=== PATIENT | male | born 1965 | race Caucasian/White ===

== ENCOUNTER 2019-03-01 09:46 | Inpatient (IN) | payer OTHER ==
[2019-03-01] MEDS ORDERED: DOCUSATE SODIUM 100 MG CAP PO (12:00)
[2019-03-01] MEDS ORDERED: morphine 2 MG INJ IV (12:00)
[2019-03-01] MEDS ORDERED: NACL 0.9% 3 ML SYG IV (12:00)
[2019-03-01] MEDS ORDERED: ACETAMINOPHEN 325 MG TAB PO (12:00)
[2019-03-01] MEDS ORDERED: ONDANSETRON 4 MG INJ IV (12:00)
[2019-03-01] MEDS ORDERED: NITROGLYCERIN (SL) 0.4 MG TAB SL (12:00)
[2019-03-01] MEDS ORDERED: HYDROCODONE/APAP (5/325) TAB PO (12:00)
[2019-03-01] MEDS: CALCIUM ACETATE 667 MG CAP PO ×2 (13:40→17:33)
[2019-03-01] MEDS: GABAPENTIN 300 MG CAP PO ×2 (13:40→20:45)
[2019-03-01] MEDS: HEPARIN 5,000 UNIT/1 ML VIAL SC ×2 (13:41→20:58)
[2019-03-01] MEDS: BUMETANIDE 1 MG INJ IV (17:33)
[2019-03-01] MEDS: INSULIN ASPART [NOVOLOG] 3 ML PEN SC ×2 (17:36→20:44)
[2019-03-01] MEDS: GEMFIBROZIL 600 MG TAB PO (20:44)
[2019-03-01] MEDS: LOSARTAN 50 MG TAB PO (20:44)
[2019-03-01] MEDS: ATORVASTATIN 80 MG TAB PO (20:45)
[2019-03-02] MEDS: ACCU-CHEK XX (02:00)
[2019-03-02] MEDS: BUMETANIDE 1 MG INJ IV ×2 (05:58→17:08)
[2019-03-02 06:17] LABS: ADD MAN DIFF? NO
[2019-03-02 06:26] LABS: WHITE BLOOD COUNT 5.4 10^3/ul (4.8-10.8)
[2019-03-02 06:26] LABS: BASOPHIL # 0.1 10^3/ul (0.0-0.1); BASOPHILS % 1.5 % (0.0-2.0); EOSINOPHILS # 1.3 10^3/ul (0.0-0.5); EOSINOPHILS % 23.8 % (0.0-7.0); HEMATOCRIT 25.7 % (42.0-52.0); HEMOGLOBIN 8.5 g/dl (14.0-18.0); LYMPHOCYTES # 0.9 10^3/ul (0.8-2.9); LYMPHOCYTES % 16.2 % (15.0-51.0); MEAN CORPUSCULAR HEMOGLOBIN 32.2 pg (29.0-33.0); MEAN CORPUSCULAR HGB CONC 33.1 g/dl (32.0-37.0); MEAN CORPUSCULAR VOLUME 97.3 fl (82.0-101.0); MONOCYTE # 0.7 10^3/ul (0.3-0.9); NEUTROPHIL # 2.4 10^3/ul (1.6-7.5); NEUTROPHILS % 45.3 % (39.0-77.0); PLATELET COUNT 138 10^3/UL (140-415); RED BLOOD COUNT 2.64 10^6/ul (4.70-6.10); RED CELL DISTRIBUTION WIDTH 14.6 % (11.5-14.5)
[2019-03-02] MEDS: HEPARIN 5,000 UNIT/1 ML VIAL SC ×3 (06:27→22:21)
[2019-03-02 06:57] LABS: ALANINE AMINOTRANSFERASE 17 IU/L (13-69); ALBUMIN/GLOBULIN RATIO 1.42; ALKALINE PHOSPHATASE 101 IU/L (42-121); ANION GAP 13 (5-13); ASPARTATE AMINO TRANSFERASE 19 IU/L (15-46); BILIRUBIN,INDIRECT 0.2 mg/dl (0-1.1); BILIRUBIN,TOTAL 0.2 mg/dl (0.2-1.3); BLOOD UREA NITROGEN 34 mg/dl (7-20); CALCIUM 8.5 mg/dl (8.4-10.2); CARBON DIOXIDE 30 mmol/L (21-31); CHLORIDE 91 mmol/L (97-110); CHOL/HDL RATIO 4.9 RATIO; CHOLESTEROL 128 mg/dl (100-200); CREATININE 7.41 mg/dl (0.61-1.24); Estimated GFR 8 mL/min (>60); GLUCOSE 96 mg/dl (70-220); HDL CHOLESTEROL 26 mg/dl (28-71); LDL CHOLESTEROL,CALCULATED 76 mg/dl; POTASSIUM 4.5 mmol/L (3.5-5.1); SODIUM 134 mmol/L (135-144); TOTAL PROTEIN 6.8 g/dl (6.1-8.1); TRIGLYCERIDES 130 mg/dl (0-149)
[2019-03-02 07:20] LABS: HEMOGLOBIN A1C 6.1 % (0-5.9)
[2019-03-02 07:24] LABS: THYROID STIMULATING HORMONE 0.092 MIU/L (0.465-4.680)
[2019-03-02 08:08] LABS: HEPATITIS B SURFACE ANTIGEN NEGATIVE (NEGATIVE)
[2019-03-02] MEDS: CALCIUM ACETATE 667 MG CAP PO ×3 (08:14→17:09)
[2019-03-02] MEDS: ASPIRIN 81 MG TAB PO (08:14)
[2019-03-02] MEDS: FERROUS SULFATE (EC) 325 MG TAB PO (08:15)
[2019-03-02] MEDS: AMLODIPINE 10 MG TAB PO (08:15)
[2019-03-02] MEDS: ISOSORBIDE MONONITRATE(SR)60 MG TAB PO (08:15)
[2019-03-02] MEDS: GABAPENTIN 300 MG CAP PO ×3 (08:15→21:44)
[2019-03-02] MEDS: LOSARTAN 50 MG TAB PO ×2 (08:15→21:45)
[2019-03-02] MEDS: GEMFIBROZIL 600 MG TAB PO ×2 (08:15→21:44)
[2019-03-02] MEDS: INSULIN ASPART [NOVOLOG] 3 ML PEN SC ×4 (08:17→21:00)
[2019-03-02 09:55] LABS: HEPATITIS B SURFACE ANTIBODY INDETERMINATE (NEGATIVE)
[2019-03-02] MEDS: EPOETIN ALFA-EPBX (ESRD) 4,000 UNIT/ML VIAL SC (17:09)
[2019-03-02] MEDS: ATORVASTATIN 80 MG TAB PO (21:44)
[2019-03-03] MEDS: ACCU-CHEK XX (02:00)
[2019-03-03] MEDS: BUMETANIDE 1 MG INJ IV ×2 (06:06→17:23)
[2019-03-03] MEDS: HEPARIN 5,000 UNIT/1 ML VIAL SC ×3 (06:15→22:07)
[2019-03-03 06:18] LABS: ADD MAN DIFF? NO
[2019-03-03 06:22] LABS: BASOPHIL # 0.1 10^3/ul (0.0-0.1); BASOPHILS % 0.8 % (0.0-2.0); EOSINOPHILS # 1.3 10^3/ul (0.0-0.5); EOSINOPHILS % 21.4 % (0.0-7.0); HEMATOCRIT 25.3 % (42.0-52.0); HEMOGLOBIN 8.6 g/dl (14.0-18.0); LYMPHOCYTES # 0.8 10^3/ul (0.8-2.9); LYMPHOCYTES % 12.9 % (15.0-51.0); MEAN CORPUSCULAR HEMOGLOBIN 33.2 pg (29.0-33.0); MEAN CORPUSCULAR VOLUME 97.7 fl (82.0-101.0); MEAN PLATELET VOLUME 10.2 fl (7.4-10.4); MONOCYTE # 0.7 10^3/ul (0.3-0.9); MONOCYTES % 10.9 % (0.0-11.0); NEUTROPHIL # 3.2 10^3/ul (1.6-7.5); NEUTROPHILS % 53.7 % (39.0-77.0); PLATELET COUNT 128 10^3/UL (140-415); RED BLOOD COUNT 2.59 10^6/ul (4.70-6.10); RED CELL DISTRIBUTION WIDTH 14.6 % (11.5-14.5)
[2019-03-03 06:44] LABS: ANION GAP 11 (5-13); BLOOD UREA NITROGEN 20 mg/dl (7-20); CALCIUM 8.5 mg/dl (8.4-10.2); CARBON DIOXIDE 27 mmol/L (21-31); CHLORIDE 98 mmol/L (97-110); CREATININE 5.32 mg/dl (0.61-1.24); Estimated GFR 11 mL/min (>60); GLUCOSE 98 mg/dl (70-220); POTASSIUM 5.2 mmol/L (3.5-5.1); SODIUM 136 mmol/L (135-144)
[2019-03-03 07:06] LABS: CHOL/HDL RATIO 4.5 RATIO; HDL CHOLESTEROL 27 mg/dl (28-71); LDL CHOLESTEROL,CALCULATED 74 mg/dl; TRIGLYCERIDES 105 mg/dl (0-149)
[2019-03-03 07:06] LABS: CHOLESTEROL 122 mg/dl (100-200)
[2019-03-03] MEDS: INSULIN ASPART [NOVOLOG] 3 ML PEN SC ×4 (08:04→21:00)
[2019-03-03] MEDS: GABAPENTIN 300 MG CAP PO ×3 (08:34→21:59)
[2019-03-03] MEDS: FERROUS SULFATE (EC) 325 MG TAB PO (08:34)
[2019-03-03] MEDS: LOSARTAN 50 MG TAB PO ×2 (08:34→22:00)
[2019-03-03] MEDS: ASPIRIN 81 MG TAB PO (08:34)
[2019-03-03] MEDS: GEMFIBROZIL 600 MG TAB PO ×2 (08:34→22:00)
[2019-03-03] MEDS: CALCIUM ACETATE 667 MG CAP PO ×3 (08:34→17:23)
[2019-03-03] MEDS: ISOSORBIDE MONONITRATE(SR)60 MG TAB PO (08:34)
[2019-03-03] MEDS: AMLODIPINE 10 MG TAB PO (08:35)
[2019-03-03] MEDS: ATORVASTATIN 80 MG TAB PO (22:00)
[2019-03-04] MEDS: ACCU-CHEK XX (02:00)
[2019-03-04 06:18] LABS: ADD MAN DIFF? NO
[2019-03-04 06:22] LABS: WHITE BLOOD COUNT 5.4 10^3/ul (4.8-10.8)
[2019-03-04 06:22] LABS: BASOPHIL # 0.1 10^3/ul (0.0-0.1); BASOPHILS % 0.9 % (0.0-2.0); EOSINOPHILS # 1.1 10^3/ul (0.0-0.5); EOSINOPHILS % 20.4 % (0.0-7.0); HEMATOCRIT 24.9 % (42.0-52.0); HEMOGLOBIN 8.4 g/dl (14.0-18.0); LYMPHOCYTES # 0.8 10^3/ul (0.8-2.9); LYMPHOCYTES % 14.1 % (15.0-51.0); MEAN CORPUSCULAR HEMOGLOBIN 32.9 pg (29.0-33.0); MEAN CORPUSCULAR HGB CONC 33.7 g/dl (32.0-37.0); MEAN CORPUSCULAR VOLUME 97.6 fl (82.0-101.0); MEAN PLATELET VOLUME 11.1 fl (7.4-10.4); MONOCYTE # 0.7 10^3/ul (0.3-0.9); MONOCYTES % 13.2 % (0.0-11.0); NEUTROPHIL # 2.8 10^3/ul (1.6-7.5); NEUTROPHILS % 51.2 % (39.0-77.0); PLATELET COUNT 138 10^3/UL (140-415); RED BLOOD COUNT 2.55 10^6/ul (4.70-6.10); RED CELL DISTRIBUTION WIDTH 14.7 % (11.5-14.5)
[2019-03-04] MEDS: BUMETANIDE 1 MG INJ IV ×2 (06:50→17:06)
[2019-03-04] MEDS: HEPARIN 5,000 UNIT/1 ML VIAL SC ×3 (06:57→21:45)
[2019-03-04 06:58] LABS: ANION GAP 10 (5-13); BLOOD UREA NITROGEN 15 mg/dl (7-20); CALCIUM 8.5 mg/dl (8.4-10.2); CARBON DIOXIDE 28 mmol/L (21-31); CHLORIDE 95 mmol/L (97-110); CREATININE 4.12 mg/dl (0.61-1.24); Estimated GFR 15 mL/min (>60); GLUCOSE 118 mg/dl (70-220); POTASSIUM 4.3 mmol/L (3.5-5.1); SODIUM 133 mmol/L (135-144)
[2019-03-04 07:08] LABS: PHOSPHORUS 3.6 mg/dl (2.5-4.9)
[2019-03-04] MEDS: INSULIN ASPART [NOVOLOG] 3 ML PEN SC ×4 (07:55→21:17)
[2019-03-04] MEDS: GEMFIBROZIL 600 MG TAB PO ×2 (08:33→21:06)
[2019-03-04] MEDS: LOSARTAN 50 MG TAB PO ×2 (08:33→21:09)
[2019-03-04] MEDS: ISOSORBIDE MONONITRATE(SR)60 MG TAB PO (08:33)
[2019-03-04] MEDS: CALCIUM ACETATE 667 MG CAP PO ×3 (08:33→17:06)
[2019-03-04] MEDS: FERROUS SULFATE (EC) 325 MG TAB PO (08:33)
[2019-03-04] MEDS: ASPIRIN 81 MG TAB PO (08:34)
[2019-03-04] MEDS: GABAPENTIN 300 MG CAP PO ×3 (08:34→21:06)
[2019-03-04] MEDS: AMLODIPINE 10 MG TAB PO (08:34)
[2019-03-04] MEDS: ATORVASTATIN 80 MG TAB PO (21:06)
[2019-03-05] MEDS: ACCU-CHEK XX (02:00)
[2019-03-05] MEDS: BUMETANIDE 1 MG INJ IV ×2 (05:44→17:18)
[2019-03-05] MEDS: HEPARIN 5,000 UNIT/1 ML VIAL SC ×3 (05:55→23:58)
[2019-03-05 06:12] LABS: ADD MAN DIFF? NO
[2019-03-05 06:19] LABS: BASOPHIL # 0.1 10^3/ul (0.0-0.1); BASOPHILS % 1.3 % (0.0-2.0); EOSINOPHILS # 1.2 10^3/ul (0.0-0.5); EOSINOPHILS % 17.7 % (0.0-7.0); HEMATOCRIT 25.9 % (42.0-52.0); HEMOGLOBIN 8.6 g/dl (14.0-18.0); LYMPHOCYTES # 0.8 10^3/ul (0.8-2.9); LYMPHOCYTES % 11.5 % (15.0-51.0); MEAN CORPUSCULAR HEMOGLOBIN 32.8 pg (29.0-33.0); MEAN CORPUSCULAR HGB CONC 33.2 g/dl (32.0-37.0); MEAN CORPUSCULAR VOLUME 98.9 fl (82.0-101.0); MEAN PLATELET VOLUME 11.2 fl (7.4-10.4); MONOCYTE # 0.8 10^3/ul (0.3-0.9); MONOCYTES % 10.7 % (0.0-11.0); NEUTROPHIL # 4.1 10^3/ul (1.6-7.5); NEUTROPHILS % 58.4 % (39.0-77.0); PLATELET COUNT 150 10^3/UL (140-415); RED BLOOD COUNT 2.62 10^6/ul (4.70-6.10); RED CELL DISTRIBUTION WIDTH 14.6 % (11.5-14.5)
[2019-03-05 06:56] LABS: ANION GAP 10 (5-13); BLOOD UREA NITROGEN 18 mg/dl (7-20); CALCIUM 8.9 mg/dl (8.4-10.2); CARBON DIOXIDE 27 mmol/L (21-31); CHLORIDE 97 mmol/L (97-110); CREATININE 4.44 mg/dl (0.61-1.24); Estimated GFR 14 mL/min (>60); GLUCOSE 81 mg/dl (70-220); POTASSIUM 5.4 mmol/L (3.5-5.1); SODIUM 134 mmol/L (135-144)
[2019-03-05 07:10] LABS: PHOSPHORUS 4.2 mg/dl (2.5-4.9)
[2019-03-05 07:10] LABS: MAGNESIUM 2.1 mg/dl (1.7-2.5)
[2019-03-05] MEDS: CALCIUM ACETATE 667 MG CAP PO ×3 (07:45→17:17)
[2019-03-05] MEDS: INSULIN ASPART [NOVOLOG] 3 ML PEN SC ×4 (07:48→21:00)
[2019-03-05] MEDS: FERROUS SULFATE (EC) 325 MG TAB PO (08:19)
[2019-03-05] MEDS: GEMFIBROZIL 600 MG TAB PO ×2 (08:19→21:53)
[2019-03-05] MEDS: ASPIRIN 81 MG TAB PO (08:19)
[2019-03-05] MEDS: GABAPENTIN 300 MG CAP PO ×3 (08:19→21:53)
[2019-03-05] MEDS: AMLODIPINE 10 MG TAB PO (08:20)
[2019-03-05] MEDS: LOSARTAN 50 MG TAB PO ×2 (08:21→21:56)
[2019-03-05] MEDS: ISOSORBIDE MONONITRATE(SR)60 MG TAB PO (08:21)
[2019-03-05] MEDS ORDERED: GLUCAGON 1 MG INJ IM (13:00)
[2019-03-05] MEDS ORDERED: GLUCOSE GEL 15 GRAM TUBE PO ×2 (13:00)
[2019-03-05] MEDS ORDERED: DEXTROSE 50% 50 ML SYRINGE IV ×2 (13:00)
[2019-03-05] MEDS ORDERED: hydrALAzine 20 MG INJ IV (13:00)
[2019-03-05] MEDS ORDERED: GLUCOSE GEL 15 GRAM TUBE BUCCAL (13:00)
[2019-03-05] MEDS: EPOETIN ALFA-EPBX (ESRD) 10,000 UNIT/ML VIAL SC (17:24)
[2019-03-05] MEDS: ATORVASTATIN 80 MG TAB PO (21:53)
[2019-03-06] MEDS: ACCU-CHEK XX (02:00)
[2019-03-06 06:23] LABS: ADD MAN DIFF? NO
[2019-03-06 06:27] LABS: WHITE BLOOD COUNT 5.9 10^3/ul (4.8-10.8)
[2019-03-06 06:27] LABS: ABNORMAL IP MESSAGE 1; BASOPHIL # 0.1 10^3/ul (0.0-0.1); BASOPHILS % 1.4 % (0.0-2.0); EOSINOPHILS # 1.1 10^3/ul (0.0-0.5); EOSINOPHILS % 17.8 % (0.0-7.0); HEMATOCRIT 24.3 % (42.0-52.0); HEMOGLOBIN 8.1 g/dl (14.0-18.0); LYMPHOCYTES # 0.5 10^3/ul (0.8-2.9); LYMPHOCYTES % 8.8 % (15.0-51.0); MEAN CORPUSCULAR HEMOGLOBIN 32.9 pg (29.0-33.0); MEAN CORPUSCULAR HGB CONC 33.3 g/dl (32.0-37.0); MEAN CORPUSCULAR VOLUME 98.8 fl (82.0-101.0); MEAN PLATELET VOLUME 11.5 fl (7.4-10.4); MONOCYTE # 0.8 10^3/ul (0.3-0.9); MONOCYTES % 12.7 % (0.0-11.0); NEUTROPHIL # 3.5 10^3/ul (1.6-7.5); NEUTROPHILS % 58.8 % (39.0-77.0); PLATELET COUNT 146 10^3/UL (140-415); POSITIVE DIFF @See below; RED BLOOD COUNT 2.46 10^6/ul (4.70-6.10); RED CELL DISTRIBUTION WIDTH 14.8 % (11.5-14.5)
[2019-03-06] MEDS: BUMETANIDE 1 MG INJ IV ×2 (06:41→17:16)
[2019-03-06] MEDS: HEPARIN 5,000 UNIT/1 ML VIAL SC (06:50)
[2019-03-06 06:53] LABS: ANION GAP 9 (5-13); BLOOD UREA NITROGEN 19 mg/dl (7-20); CARBON DIOXIDE 26 mmol/L (21-31); CHLORIDE 102 mmol/L (97-110); CREATININE 3.79 mg/dl (0.61-1.24); Estimated GFR 17 mL/min (>60); GLUCOSE 111 mg/dl (70-220); POTASSIUM 4.8 mmol/L (3.5-5.1); SODIUM 137 mmol/L (135-144)
[2019-03-06 06:57] LABS: PHOSPHORUS 4.3 mg/dl (2.5-4.9)
[2019-03-06 06:57] LABS: MAGNESIUM 2.1 mg/dl (1.7-2.5)
[2019-03-06] MEDS: INSULIN ASPART [NOVOLOG] 3 ML PEN SC ×4 (07:55→21:00)
[2019-03-06] MEDS: GABAPENTIN 300 MG CAP PO ×3 (08:34→21:26)
[2019-03-06] MEDS: CALCIUM ACETATE 667 MG CAP PO ×3 (08:34→17:16)
[2019-03-06] MEDS: GEMFIBROZIL 600 MG TAB PO ×2 (08:34→21:26)
[2019-03-06] MEDS: FERROUS SULFATE (EC) 325 MG TAB PO (08:34)
[2019-03-06] MEDS: ISOSORBIDE MONONITRATE(SR)60 MG TAB PO (08:34)
[2019-03-06] MEDS: ASPIRIN 81 MG TAB PO (08:35)
[2019-03-06] MEDS: LOSARTAN 50 MG TAB PO ×2 (08:35→21:27)
[2019-03-06] MEDS: AMLODIPINE 10 MG TAB PO (08:36)
[2019-03-06] MEDS: ATORVASTATIN 80 MG TAB PO (21:26)
[2019-03-07] MEDS: ACCU-CHEK XX ×10 (02:00→23:03)
[2019-03-07] MEDS: BUMETANIDE 1 MG INJ IV (06:00)
[2019-03-07] MEDS: NORepinephrine 8MG/250 ML (PMX 250 ML IV (07:00)
[2019-03-07] MEDS: HEPARIN (10000 UNITS/ML) 10,000 UNIT, MILRINONE LACTATE 10 MG in SOD CHLORIDE 0.9% 1,00... SC (07:00)
[2019-03-07] MEDS: MILRINONE LACTATE 2 MG in SOD CHLORIDE 0.9% 50 ML IV (07:00)
[2019-03-07] MEDS ORDERED: ISOFLURANE 15 MIN (07:00)
[2019-03-07] MEDS: PHENYLephrine 20MG IN 250 ML 250 ML IV (07:00)
[2019-03-07] MEDS: ASPIRIN 600 MG SUPP PR (07:00)
[2019-03-07] MEDS: EPINEPHrine 4 MG in DEXTROSE 5% 246 ML IV (07:00)
[2019-03-07] MEDS ORDERED: NITROGLYCERIN 50 MG/D5W 250 ML BTL (07:00)
[2019-03-07] MEDS ORDERED: DOPamine-D5W 1.6 MG/ML 250 ML (07:00)
[2019-03-07] MEDS: INSULIN HUMAN REGULAR 100 UNIT in SOD CHLORIDE 0.9% 99 ML IVPB (07:00)
[2019-03-07] MEDS ORDERED: MIDAZOLAM 5 ML ×2 (07:01→09:08)
[2019-03-07] MEDS ORDERED: ALBUMIN HUMAN 25% 0 ML (07:08)
[2019-03-07] MEDS ORDERED: AMINOCAPROIC ACID 5 GM INJ ×2 (07:09→08:11)
[2019-03-07] MEDS ORDERED: HEPARIN 1000 UNITS/ML 10 ML INJ ×2 (07:10→08:37)
[2019-03-07] MEDS ORDERED: CA CHLORIDE 10% 10 ML SYRINGE (07:10)
[2019-03-07] MEDS ORDERED: LIDOCAINE 100 MG SYRINGE (07:10)
[2019-03-07] MEDS ORDERED: POTASSIUM CHLORIDE 40 MEQ INJ ×2 (07:11→08:29)
[2019-03-07] MEDS ORDERED: MAGNESIUM SULFATE (MG) 50% 10 ML INJ (07:12)
[2019-03-07] MEDS ORDERED: MANNITOL 20% 1,000 ML (07:13)
[2019-03-07] MEDS ORDERED: PHENYLephrine (100 MCG/ML) 10ML SYG ×2 (07:14→07:15)
[2019-03-07] MEDS ORDERED: PHENYLephrine 10 MG INJ (07:14)
[2019-03-07] MEDS ORDERED: NA BICARBONATE 8.4% 50 ML SYG (07:15)
[2019-03-07] MEDS ORDERED: CEFAZOLIN 1 GM INJ ×2 (08:11→11:32)
[2019-03-07] MEDS ORDERED: FUROSEMIDE 20 MG INJ (08:22)
[2019-03-07] MEDS: PAPAVERINE 60 MG INJ (08:51)
[2019-03-07] MEDS: HEPARIN 1000 UNITS/ML 10 ML INJ (08:52)
[2019-03-07] MEDS: VANCOMYCIN 1 GM INJ (08:52)
[2019-03-07] MEDS ORDERED: FUROSEMIDE 10 ML (09:13)
[2019-03-07] MEDS ORDERED: PROTAMINE 250 MG INJ (11:00)
[2019-03-07] MEDS ORDERED: VANCOMYCIN 1 GM INJ (11:18)
[2019-03-07] MEDS ORDERED: LIDOCAINE 2% (SDV) 5 ML INJ (11:42)
[2019-03-07] MEDS ORDERED: ROCURONIUM 50 MG INJ (11:42)
[2019-03-07] MEDS ORDERED: ETOMIDATE 20 MG INJ (11:42)
[2019-03-07 12:49] LABS: ADD MAN DIFF? NO
[2019-03-07 12:50] LABS: BASOPHIL # 0.1 10^3/ul (0.0-0.1); BASOPHILS % 0.6 % (0.0-2.0); EOSINOPHILS # 1.2 10^3/ul (0.0-0.5); EOSINOPHILS % 9.1 % (0.0-7.0); HEMATOCRIT 25.3 % (42.0-52.0); HEMOGLOBIN 8.4 g/dl (14.0-18.0); LYMPHOCYTES # 0.9 10^3/ul (0.8-2.9); LYMPHOCYTES % 6.8 % (15.0-51.0); MEAN CORPUSCULAR HEMOGLOBIN 32.9 pg (29.0-33.0); MEAN CORPUSCULAR HGB CONC 33.2 g/dl (32.0-37.0); MEAN CORPUSCULAR VOLUME 99.2 fl (82.0-101.0); MEAN PLATELET VOLUME 11.3 fl (7.4-10.4); MONOCYTE # 0.8 10^3/ul (0.3-0.9); MONOCYTES % 5.9 % (0.0-11.0); NEUTROPHIL # 9.9 10^3/ul (1.6-7.5); PLATELET COUNT 148 10^3/UL (140-415); RED BLOOD COUNT 2.55 10^6/ul (4.70-6.10); RED CELL DISTRIBUTION WIDTH 15.1 % (11.5-14.5)
[2019-03-07 12:50] LABS: WHITE BLOOD COUNT 12.8 10^3/ul (4.8-10.8)
[2019-03-07 12:56] LABS: AADO2 Arterial 383.2 mmHg (7.0-24.0); Arterial Base Excess 0.2 mmol/L (-3.0-3); Arterial Blood Gas Oxygen Sat 93.1 mmHG (95.0-98.0); Arterial COHb 0.3 % (0.0-3.0); Arterial Fraction of Oxyhgb 92.5 % (93.0-99.0); Arterial HCO3 25.1 mmol/L (22.0-26.0); Arterial MetHb 0.3 % (0.0-1.5); Arterial pCO2 41.4 mmhg (35-45); MODE VENT - AC; Site A-Line
[2019-03-07] MEDS ORDERED: NITROGLYCERIN 50 MG/D5W (PMX) 250 ML IV (13:00)
[2019-03-07] MEDS ORDERED: PHENYLephrine 20MG IN 250 ML 250 ML IV (13:00)
[2019-03-07 13:08] LABS: ANION GAP 8 (5-13); BLOOD UREA NITROGEN 20 mg/dl (7-20); CARBON DIOXIDE 26 mmol/L (21-31); CHLORIDE 101 mmol/L (97-110); CREATININE 3.24 mg/dl (0.61-1.24); Estimated GFR 20 mL/min (>60); GLUCOSE 119 mg/dl (70-220); MAGNESIUM 1.9 mg/dl (1.7-2.5); POTASSIUM 4.8 mmol/L (3.5-5.1); SODIUM 135 mmol/L (135-144)
[2019-03-07 13:10] LABS: PROTIME 16.3 Sec (11.9-14.9); PT RATIO 1.3
[2019-03-07 13:11] LABS: PARTIAL THROMBOPLASTIN TIME 37.4 Sec (23.0-35.0)
[2019-03-07] MEDS ORDERED: ACETAMINOPHEN 325 MG TAB PO (13:30)
[2019-03-07] MEDS ORDERED: HYDROmorphONE 0.5 MG/0.5 ML SYG IV (13:30)
[2019-03-07] MEDS: CEFAZOLIN 1 GM/50 ML (PMX) 50 ML IVPB ×2 (14:03→20:47)
[2019-03-07] MEDS: CALCIUM CHLORIDE 10% 1 GM in DEXTROSE 5%-0.225% NACL 1,000 ML IV (15:06)
[2019-03-07] MEDS: DOPamine-D5W 1.6 MG/ML 250 ML IV ×2 (15:11→20:26)
[2019-03-07] MEDS: FAMOTIDINE 20 MG INJ IV (15:11)
[2019-03-07] MEDS: INSULIN HUMAN REGULAR 100 UNIT in SOD CHLORIDE 0.9% 99 ML IV (17:05)
[2019-03-07] MEDS: HYDROmorphONE 0.5 MG/0.5 ML SYG IV ×2 (17:13→19:55)
[2019-03-07 18:46] LABS: ADD MAN DIFF? NO
[2019-03-07 18:48] LABS: ABNORMAL IP MESSAGE 1; BASOPHIL # 0.1 10^3/ul (0.0-0.1); BASOPHILS % 0.5 % (0.0-2.0); EOSINOPHILS # 0.5 10^3/ul (0.0-0.5); EOSINOPHILS % 4.6 % (0.0-7.0); HEMATOCRIT 23.9 % (42.0-52.0); LYMPHOCYTES # 0.4 10^3/ul (0.8-2.9); LYMPHOCYTES % 3.5 % (15.0-51.0); MEAN CORPUSCULAR HEMOGLOBIN 32.8 pg (29.0-33.0); MEAN CORPUSCULAR HGB CONC 33.5 g/dl (32.0-37.0); MEAN PLATELET VOLUME 11.2 fl (7.4-10.4); MONOCYTE # 0.9 10^3/ul (0.3-0.9); NEUTROPHIL # 8.1 10^3/ul (1.6-7.5); PLATELET COUNT 152 10^3/UL (140-415); POSITIVE DIFF @See below; RED BLOOD COUNT 2.44 10^6/ul (4.70-6.10)
[2019-03-07 18:48] LABS: WHITE BLOOD COUNT 9.9 10^3/ul (4.8-10.8)
[2019-03-07 20:03] LABS: ANION GAP 8 (5-13); BLOOD UREA NITROGEN 27 mg/dl (7-20); CALCIUM 8.5 mg/dl (8.4-10.2); CARBON DIOXIDE 24 mmol/L (21-31); CHLORIDE 103 mmol/L (97-110); CREATININE 3.79 mg/dl (0.61-1.24); Estimated GFR 17 mL/min (>60); GLUCOSE 167 mg/dl (70-220); SODIUM 135 mmol/L (135-144)
[2019-03-07 20:05] LABS: POTASSIUM 6.1 mmol/L (3.5-5.1)
[2019-03-07 20:21] LABS: MAGNESIUM 1.9 mg/dl (1.7-2.5)
[2019-03-07 20:21] LABS: PHOSPHORUS 4.2 mg/dl (2.5-4.9)
[2019-03-07] MEDS: ALBUTEROL/IPRATROPIUM (NEB) 3 ML AMP HHN (20:30)
[2019-03-07] MEDS ORDERED: DEXTROSE 50% 50 ML SYRINGE IV (20:30)
[2019-03-07] MEDS: DEXTROSE 50% 50 ML SYRINGE IV (21:31)
[2019-03-07 21:33] LABS: AADO2 Arterial 188.9 mmHg (7.0-24.0); Arterial Base Excess -0.5 mmol/L (-3.0-3); Arterial Blood Gas Oxygen Sat 91.9 mmHG (95.0-98.0); Arterial COHb 0.3 % (0.0-3.0); Arterial Fraction of Oxyhgb 91.3 % (93.0-99.0); Arterial HCO3 22.5 mmol/L (22.0-26.0); Arterial MetHb 0.4 % (0.0-1.5); Arterial pCO2 30.3 mmhg (35-45); MODE VENT - AC; Site A-Line
[2019-03-07] MEDS: INSULIN REGULAR, HUMAN 100 UNIT/1 ML 3ML VIAL IVP (21:35)
[2019-03-07 22:40] LABS: POTASSIUM 4.6 mmol/L (3.5-5.1)
[2019-03-07 23:39] LABS: AADO2 Arterial 181.8 mmHg (7.0-24.0); Arterial Base Excess -1.5 mmol/L (-3.0-3); Arterial Blood Gas Oxygen Sat 89.3 mmHG (95.0-98.0); Arterial COHb 0.3 % (0.0-3.0); Arterial Fraction of Oxyhgb 88.6 % (93.0-99.0); Arterial HCO3 22.8 mmol/L (22.0-26.0); Arterial MetHb 0.5 % (0.0-1.5); Arterial pCO2 36.5 mmhg (35-45); Blood Gas PS 5; MODE VENT - CPAP; Site A-Line
[2019-03-08] MEDS: ACCU-CHEK XX ×15 (00:14→14:30)
[2019-03-08] MEDS: HYDROmorphONE 0.5 MG/0.5 ML SYG IV ×8 (00:17→22:36)
[2019-03-08 01:42] LABS: Allen Test ACCEPTAB; MODE NASAL CANNULA; MetHgb Mixed Venous 0.4 %; Mixed Venous COHb 0.3 %; Mixed Venous Fraction OxyHgb 57.9 %; Mixed Venous Oxygen Sat 58.3 mmHG (65.0-75.0); Mixed Venous Total Hemglobin 8.3 g/dl; Sample Type BLMV; Site PUL ART LINE
[2019-03-08] MEDS: CEFAZOLIN 1 GM/50 ML (PMX) 50 ML IVPB (05:07)
[2019-03-08 05:11] LABS: AADO2 Arterial 137.4 mmHg (7.0-24.0); Arterial Base Excess -1.7 mmol/L (-3.0-3); Arterial Blood Gas Oxygen Sat 86.4 mmHG (95.0-98.0); Arterial COHb 0.3 % (0.0-3.0); Arterial Fraction of Oxyhgb 85.7 % (93.0-99.0); Arterial HCO3 22.7 mmol/L (22.0-26.0); Arterial MetHb 0.5 % (0.0-1.5); MODE NASAL CANNULA; Site A-Line
[2019-03-08 05:19] LABS: ADD MAN DIFF? NO
[2019-03-08 05:23] LABS: BASOPHILS % 0.4 % (0.0-2.0); EOSINOPHILS # 0.1 10^3/ul (0.0-0.5); EOSINOPHILS % 0.8 % (0.0-7.0); HEMATOCRIT 21.4 % (42.0-52.0); HEMOGLOBIN 7.1 g/dl (14.0-18.0); LYMPHOCYTES # 0.6 10^3/ul (0.8-2.9); LYMPHOCYTES % 6.1 % (15.0-51.0); MEAN CORPUSCULAR HEMOGLOBIN 32.9 pg (29.0-33.0); MEAN CORPUSCULAR HGB CONC 33.2 g/dl (32.0-37.0); MEAN CORPUSCULAR VOLUME 99.1 fl (82.0-101.0); MEAN PLATELET VOLUME 11.1 fl (7.4-10.4); MONOCYTE # 1.3 10^3/ul (0.3-0.9); MONOCYTES % 12.9 % (0.0-11.0); NEUTROPHIL # 7.9 10^3/ul (1.6-7.5); NEUTROPHILS % 79.4 % (39.0-77.0); PLATELET COUNT 163 10^3/UL (140-415); RED BLOOD COUNT 2.16 10^6/ul (4.70-6.10); RED CELL DISTRIBUTION WIDTH 15.6 % (11.5-14.5)
[2019-03-08 06:00] LABS: PHOSPHORUS 4.4 mg/dl (2.5-4.9)
[2019-03-08 06:02] LABS: ANION GAP 11 (5-13); BLOOD UREA NITROGEN 32 mg/dl (7-20); CALCIUM 8.6 mg/dl (8.4-10.2); CARBON DIOXIDE 23 mmol/L (21-31); CHLORIDE 102 mmol/L (97-110); Estimated GFR 12 mL/min (>60); GLUCOSE 130 mg/dl (70-220); POTASSIUM 5.3 mmol/L (3.5-5.1); SODIUM 136 mmol/L (135-144)
[2019-03-08 06:07] LABS: POTASSIUM 5.4 mmol/L (3.5-5.1)
[2019-03-08] MEDS: CALCIUM CHLORIDE 10% 1 GM in DEXTROSE 5%-0.225% NACL 1,000 ML IV (07:50)
[2019-03-08] MEDS: HEPARIN 5,000 UNIT/1 ML VIAL SC ×2 (09:00→17:56)
[2019-03-08] MEDS: FAMOTIDINE 20 MG INJ IV (10:05)
[2019-03-08] MEDS ORDERED: GLUCOSE GEL 15 GRAM TUBE BUCCAL (10:30)
[2019-03-08] MEDS ORDERED: GLUCAGON 1 MG INJ IM (10:30)
[2019-03-08] MEDS ORDERED: GLUCOSE GEL 15 GRAM TUBE PO (10:30)
[2019-03-08] MEDS: DESMOPRESSIN 27 MCG in SOD CHLORIDE 0.9% 50 ML IVPB (10:59)
[2019-03-08] MEDS: INSULIN GLARGINE [LANTus] (100 UNITS/ML) SYG SC (11:24)
[2019-03-08] MEDS: INSULIN ASPART [NOVOLOG] 3 ML PEN SC ×5 (11:30→20:02)
[2019-03-08 12:13] LABS: HEMATOCRIT 21.5 % (42.0-52.0)
[2019-03-08 12:33] LABS: POTASSIUM 5.5 mmol/L (3.5-5.1)
[2019-03-08 12:44] LABS: INR 1.66; PROTIME 19.7 Sec (11.9-14.9); PT RATIO 1.5
[2019-03-08 12:45] LABS: PARTIAL THROMBOPLASTIN TIME 44.3 Sec (23.0-35.0)
[2019-03-08 13:05] LABS: IMMEDIATE SPIN CROSSMATCH 1 6
[2019-03-08] MEDS: LEVALBUTEROL (NEB) 0.63 MG/3 ML AMP HHN (16:40)
[2019-03-08] MEDS: ACETYLCYSTEINE 20% 4 ML VIAL NEB ×2 (16:41→20:43)
[2019-03-08 18:33] LABS: POTASSIUM 4.2 mmol/L (3.5-5.1)
[2019-03-08] MEDS: IPRATROPIUM (NEB) 0.5 MG/2.5 ML AMP HHN (20:43)
[2019-03-08] MEDS: LEVALBUTEROL (NEB) 1.25 MG/0.5 ML AMP HHN (20:43)
[2019-03-08 23:02] LABS: AADO2 Arterial 267.2 mmHg (7.0-24.0); Allen Test ACCEPTAB; Arterial Base Excess 0.3 mmol/L (-3.0-3); Arterial Blood Gas Oxygen Sat 87.7 mmHG (95.0-98.0); Arterial COHb 0.3 % (0.0-3.0); Arterial Fraction of Oxyhgb 87.1 % (93.0-99.0); Arterial MetHb 0.4 % (0.0-1.5); Arterial pCO2 30.2 mmhg (35-45); MODE MASK - VENTI; Site Left Radial
[2019-03-09] MEDS: OXYCODONE/ACETAMINOPHEN (5/325) TAB PO ×5 (00:38→22:56)
[2019-03-09] MEDS: ACETYLCYSTEINE 20% 4 ML VIAL NEB ×3 (01:28→20:09)
[2019-03-09] MEDS: IPRATROPIUM (NEB) 0.5 MG/2.5 ML AMP HHN ×3 (01:28→20:09)
[2019-03-09] MEDS: LEVALBUTEROL (NEB) 1.25 MG/0.5 ML AMP HHN ×3 (01:28→20:09)
[2019-03-09 04:59] LABS: ADD MAN DIFF? NO
[2019-03-09 05:03] LABS: WHITE BLOOD COUNT 11.2 10^3/ul (4.8-10.8)
[2019-03-09 05:03] LABS: BASOPHIL # 0.1 10^3/ul (0.0-0.1); BASOPHILS % 0.6 % (0.0-2.0); EOSINOPHILS # 0.2 10^3/ul (0.0-0.5); EOSINOPHILS % 1.7 % (0.0-7.0); HEMATOCRIT 25.7 % (42.0-52.0); HEMOGLOBIN 8.6 g/dl (14.0-18.0); LYMPHOCYTES # 0.7 10^3/ul (0.8-2.9); LYMPHOCYTES % 6.2 % (15.0-51.0); MEAN CORPUSCULAR HEMOGLOBIN 32.5 pg (29.0-33.0); MEAN CORPUSCULAR HGB CONC 33.5 g/dl (32.0-37.0); MEAN PLATELET VOLUME 10.8 fl (7.4-10.4); MONOCYTE # 1.4 10^3/ul (0.3-0.9); MONOCYTES % 12.5 % (0.0-11.0); NEUTROPHIL # 8.8 10^3/ul (1.6-7.5); NEUTROPHILS % 78.6 % (39.0-77.0); PLATELET COUNT 175 10^3/UL (140-415); RED BLOOD COUNT 2.65 10^6/ul (4.70-6.10); RED CELL DISTRIBUTION WIDTH 15.8 % (11.5-14.5)
[2019-03-09 05:21] LABS: ALANINE AMINOTRANSFERASE 9 IU/L (13-69); ALBUMIN 3.6 g/dl (3.3-4.9); ALBUMIN/GLOBULIN RATIO 1.16; ALKALINE PHOSPHATASE 87 IU/L (42-121); ANION GAP 14 (5-13); ASPARTATE AMINO TRANSFERASE 60 IU/L (15-46); BILIRUBIN,INDIRECT 0.2 mg/dl (0-1.1); BILIRUBIN,TOTAL 0.2 mg/dl (0.2-1.3); BLOOD UREA NITROGEN 32 mg/dl (7-20); CALCIUM 8.7 mg/dl (8.4-10.2); CARBON DIOXIDE 27 mmol/L (21-31); CHLORIDE 98 mmol/L (97-110); CREATININE 4.88 mg/dl (0.61-1.24); Estimated GFR 12 mL/min (>60); GLUCOSE 205 mg/dl (70-220); POTASSIUM 4.7 mmol/L (3.5-5.1); SODIUM 139 mmol/L (135-144); TOTAL PROTEIN 6.7 g/dl (6.1-8.1)
[2019-03-09 06:09] LABS: MAGNESIUM 2.2 mg/dl (1.7-2.5)
[2019-03-09 06:09] LABS: PHOSPHORUS 5.4 mg/dl (2.5-4.9)
[2019-03-09] MEDS: INSULIN GLARGINE [LANTus] (100 UNITS/ML) SYG SC (08:51)
[2019-03-09] MEDS: INSULIN ASPART [NOVOLOG] 3 ML PEN SC ×7 (08:52→21:00)
[2019-03-09] MEDS: HEPARIN 5,000 UNIT/1 ML VIAL SC ×2 (08:57→21:32)
[2019-03-09] MEDS: FAMOTIDINE 20 MG INJ IV (10:07)
[2019-03-09] MEDS: ASPIRIN 81 MG TAB PO (11:30)
[2019-03-09] MEDS: METOPROLOL 25 MG TAB PO (21:31)
[2019-03-10] MEDS: OXYCODONE/ACETAMINOPHEN (5/325) TAB PO ×3 (02:12→12:33)
[2019-03-10 05:57] LABS: ADD MAN DIFF? NO
[2019-03-10 06:09] LABS: WHITE BLOOD COUNT 9.7 10^3/ul (4.8-10.8)
[2019-03-10 06:09] LABS: BASOPHIL # 0.1 10^3/ul (0.0-0.1); BASOPHILS % 0.6 % (0.0-2.0); EOSINOPHILS # 0.5 10^3/ul (0.0-0.5); EOSINOPHILS % 5.6 % (0.0-7.0); HEMATOCRIT 25.1 % (42.0-52.0); HEMOGLOBIN 8.3 g/dl (14.0-18.0); LYMPHOCYTES % 9.9 % (15.0-51.0); MEAN CORPUSCULAR HEMOGLOBIN 32.5 pg (29.0-33.0); MEAN CORPUSCULAR HGB CONC 33.1 g/dl (32.0-37.0); MEAN CORPUSCULAR VOLUME 98.4 fl (82.0-101.0); MEAN PLATELET VOLUME 10.6 fl (7.4-10.4); MONOCYTES % 10.4 % (0.0-11.0); NEUTROPHIL # 7.1 10^3/ul (1.6-7.5); NEUTROPHILS % 73.1 % (39.0-77.0); PLATELET COUNT 187 10^3/UL (140-415); RED BLOOD COUNT 2.55 10^6/ul (4.70-6.10); RED CELL DISTRIBUTION WIDTH 15.5 % (11.5-14.5)
[2019-03-10 06:35] LABS: ANION GAP 12 (5-13); BLOOD UREA NITROGEN 33 mg/dl (7-20); CARBON DIOXIDE 30 mmol/L (21-31); CHLORIDE 98 mmol/L (97-110); CREATININE 4.91 mg/dl (0.61-1.24); Estimated GFR 12 mL/min (>60); GLUCOSE 122 mg/dl (70-220); POTASSIUM 4.5 mmol/L (3.5-5.1); SODIUM 140 mmol/L (135-144)
[2019-03-10 07:15] LABS: PHOSPHORUS 5.1 mg/dl (2.5-4.9)
[2019-03-10 07:15] LABS: MAGNESIUM 2.4 mg/dl (1.7-2.5)
[2019-03-10] MEDS: ASPIRIN 81 MG TAB PO (08:07)
[2019-03-10] MEDS: FAMOTIDINE 20 MG INJ IV (08:07)
[2019-03-10] MEDS: INSULIN GLARGINE [LANTus] (100 UNITS/ML) SYG SC (08:39)
[2019-03-10] MEDS: HEPARIN 5,000 UNIT/1 ML VIAL SC ×2 (08:40→21:23)
[2019-03-10] MEDS: INSULIN ASPART [NOVOLOG] 3 ML PEN SC ×7 (08:40→21:00)
[2019-03-10] MEDS: METOPROLOL 25 MG TAB PO ×2 (09:00→21:01)
[2019-03-10] MEDS: HYDROmorphONE 0.5 MG/0.5 ML SYG IV (20:58)
[2019-03-10] MEDS: LOSARTAN 25 MG TAB PO (21:01)
[2019-03-11] MEDS: OXYCODONE/ACETAMINOPHEN (5/325) TAB PO ×4 (00:36→20:34)
[2019-03-11] MEDS: HYDROmorphONE 0.5 MG/0.5 ML SYG IV ×4 (03:17→15:27)
[2019-03-11] MEDS: GUAIFENESIN 20 MG/ML 5ML CUP PO ×3 (03:46→20:46)
[2019-03-11 06:07] LABS: ADD MAN DIFF? NO
[2019-03-11 06:15] LABS: WHITE BLOOD COUNT 7.8 10^3/ul (4.8-10.8)
[2019-03-11 06:15] LABS: BASOPHIL # 0.1 10^3/ul (0.0-0.1); BASOPHILS % 0.6 % (0.0-2.0); EOSINOPHILS # 0.9 10^3/ul (0.0-0.5); EOSINOPHILS % 11.4 % (0.0-7.0); HEMOGLOBIN 8.5 g/dl (14.0-18.0); LYMPHOCYTES # 0.9 10^3/ul (0.8-2.9); LYMPHOCYTES % 11.7 % (15.0-51.0); MEAN CORPUSCULAR HEMOGLOBIN 32.1 pg (29.0-33.0); MEAN CORPUSCULAR HGB CONC 32.7 g/dl (32.0-37.0); MEAN CORPUSCULAR VOLUME 98.1 fl (82.0-101.0); MEAN PLATELET VOLUME 10.8 fl (7.4-10.4); MONOCYTES % 12.3 % (0.0-11.0); NEUTROPHILS % 63.6 % (39.0-77.0); PLATELET COUNT 200 10^3/UL (140-415); RED BLOOD COUNT 2.65 10^6/ul (4.70-6.10); RED CELL DISTRIBUTION WIDTH 14.8 % (11.5-14.5)
[2019-03-11 06:46] LABS: PHOSPHORUS 4.7 mg/dl (2.5-4.9)
[2019-03-11 06:46] LABS: MAGNESIUM 2.3 mg/dl (1.7-2.5)
[2019-03-11 06:53] LABS: ANION GAP 11 (5-13); BLOOD UREA NITROGEN 33 mg/dl (7-20); CALCIUM 8.8 mg/dl (8.4-10.2); CARBON DIOXIDE 31 mmol/L (21-31); CHLORIDE 97 mmol/L (97-110); CREATININE 4.44 mg/dl (0.61-1.24); Estimated GFR 14 mL/min (>60); GLUCOSE 90 mg/dl (70-220); POTASSIUM 4.3 mmol/L (3.5-5.1); SODIUM 139 mmol/L (135-144)
[2019-03-11] MEDS: INSULIN ASPART [NOVOLOG] 3 ML PEN SC ×7 (07:54→20:48)
[2019-03-11] MEDS: ASPIRIN 81 MG TAB PO (08:04)
[2019-03-11] MEDS: FAMOTIDINE 20 MG INJ IV (08:04)
[2019-03-11] MEDS: LOSARTAN 25 MG TAB PO ×2 (08:05→20:33)
[2019-03-11] MEDS: METOPROLOL 25 MG TAB PO ×2 (08:06→20:33)
[2019-03-11] MEDS: INSULIN GLARGINE [LANTus] (100 UNITS/ML) SYG SC (08:16)
[2019-03-11] MEDS: HEPARIN 5,000 UNIT/1 ML VIAL SC ×2 (08:16→21:31)
[2019-03-11] MEDS ORDERED: SENNA TAB PO (21:00)
[2019-03-12] MEDS: OXYCODONE/ACETAMINOPHEN (5/325) TAB PO ×6 (02:44→21:35)
[2019-03-12 05:46] LABS: ADD MAN DIFF? NO
[2019-03-12 06:07] LABS: BASOPHIL # 0.1 10^3/ul (0.0-0.1); BASOPHILS % 0.8 % (0.0-2.0); EOSINOPHILS % 12.2 % (0.0-7.0); HEMATOCRIT 25.3 % (42.0-52.0); HEMOGLOBIN 8.2 g/dl (14.0-18.0); LYMPHOCYTES # 0.8 10^3/ul (0.8-2.9); LYMPHOCYTES % 10.2 % (15.0-51.0); MEAN CORPUSCULAR HEMOGLOBIN 31.8 pg (29.0-33.0); MEAN CORPUSCULAR HGB CONC 32.4 g/dl (32.0-37.0); MEAN CORPUSCULAR VOLUME 98.1 fl (82.0-101.0); MEAN PLATELET VOLUME 10.3 fl (7.4-10.4); MONOCYTE # 0.8 10^3/ul (0.3-0.9); NEUTROPHIL # 5.3 10^3/ul (1.6-7.5); NEUTROPHILS % 66.5 % (39.0-77.0); PLATELET COUNT 206 10^3/UL (140-415); RED BLOOD COUNT 2.58 10^6/ul (4.70-6.10); RED CELL DISTRIBUTION WIDTH 14.2 % (11.5-14.5)
[2019-03-12 06:52] LABS: ANION GAP 14 (5-13); BLOOD UREA NITROGEN 58 mg/dl (7-20); CALCIUM 8.8 mg/dl (8.4-10.2); CARBON DIOXIDE 27 mmol/L (21-31); CHLORIDE 94 mmol/L (97-110); CREATININE 6.45 mg/dl (0.61-1.24); Estimated GFR 9 mL/min (>60); GLUCOSE 110 mg/dl (70-220); POTASSIUM 4.5 mmol/L (3.5-5.1); SODIUM 135 mmol/L (135-144)
[2019-03-12 06:56] LABS: MAGNESIUM 2.5 mg/dl (1.7-2.5)
[2019-03-12 06:56] LABS: PHOSPHORUS 6.7 mg/dl (2.5-4.9)
[2019-03-12] MEDS: INSULIN ASPART [NOVOLOG] 3 ML PEN SC ×7 (08:00→20:25)
[2019-03-12] MEDS: FAMOTIDINE 20 MG INJ IV (08:53)
[2019-03-12] MEDS: LOSARTAN 25 MG TAB PO ×2 (08:54→20:24)
[2019-03-12] MEDS: ASPIRIN 81 MG TAB PO (08:54)
[2019-03-12] MEDS: METOPROLOL 25 MG TAB PO (08:55)
[2019-03-12] MEDS: HEPARIN 5,000 UNIT/1 ML VIAL SC ×2 (09:35→22:24)
[2019-03-12] MEDS: INSULIN GLARGINE [LANTus] (100 UNITS/ML) SYG SC (09:35)
[2019-03-12] MEDS: EPOETIN ALFA-EPBX (NON-ESRD 10,000 UNIT/ML VIAL SC (17:32)
[2019-03-12] MEDS: METOPROLOL 50 MG TAB PO (20:25)
[2019-03-13] MEDS: OXYCODONE/ACETAMINOPHEN (5/325) TAB PO ×5 (01:18→20:11)
[2019-03-13] MEDS: GUAIFENESIN 20 MG/ML 5ML CUP PO (01:20)
[2019-03-13 05:56] LABS: ADD MAN DIFF? NO
[2019-03-13 06:06] LABS: WHITE BLOOD COUNT 7.6 10^3/ul (4.8-10.8)
[2019-03-13 06:06] LABS: BASOPHIL # 0.1 10^3/ul (0.0-0.1); BASOPHILS % 1.1 % (0.0-2.0); EOSINOPHILS # 0.8 10^3/ul (0.0-0.5); HEMATOCRIT 25.6 % (42.0-52.0); HEMOGLOBIN 8.5 g/dl (14.0-18.0); LYMPHOCYTES % 12.7 % (15.0-51.0); MEAN CORPUSCULAR HEMOGLOBIN 32.4 pg (29.0-33.0); MEAN CORPUSCULAR HGB CONC 33.2 g/dl (32.0-37.0); MEAN CORPUSCULAR VOLUME 97.7 fl (82.0-101.0); MEAN PLATELET VOLUME 10.3 fl (7.4-10.4); MONOCYTE # 0.8 10^3/ul (0.3-0.9); MONOCYTES % 10.9 % (0.0-11.0); NEUTROPHIL # 4.8 10^3/ul (1.6-7.5); NEUTROPHILS % 63.9 % (39.0-77.0); PLATELET COUNT 221 10^3/UL (140-415); RED BLOOD COUNT 2.62 10^6/ul (4.70-6.10); RED CELL DISTRIBUTION WIDTH 13.8 % (11.5-14.5)
[2019-03-13 06:41] LABS: ANION GAP 12 (5-13); BLOOD UREA NITROGEN 40 mg/dl (7-20); CALCIUM 8.7 mg/dl (8.4-10.2); CARBON DIOXIDE 30 mmol/L (21-31); CHLORIDE 96 mmol/L (97-110); CREATININE 5.15 mg/dl (0.61-1.24); Estimated GFR 12 mL/min (>60); GLUCOSE 108 mg/dl (70-220); POTASSIUM 4.6 mmol/L (3.5-5.1); SODIUM 138 mmol/L (135-144)
[2019-03-13 06:54] LABS: MAGNESIUM 2.2 mg/dl (1.7-2.5)
[2019-03-13 06:54] LABS: PHOSPHORUS 5.7 mg/dl (2.5-4.9)
[2019-03-13] MEDS: INSULIN ASPART [NOVOLOG] 3 ML PEN SC ×7 (08:00→20:11)
[2019-03-13] MEDS: FAMOTIDINE 20 MG INJ IV (08:31)
[2019-03-13] MEDS: LOSARTAN 25 MG TAB PO ×2 (08:31→20:11)
[2019-03-13] MEDS: METOPROLOL 50 MG TAB PO ×2 (08:31→20:11)
[2019-03-13] MEDS: HYDROmorphONE 0.5 MG/0.5 ML SYG IV ×2 (08:32→13:27)
[2019-03-13] MEDS: INSULIN GLARGINE [LANTus] (100 UNITS/ML) SYG SC (08:38)
[2019-03-13] MEDS: HEPARIN 5,000 UNIT/1 ML VIAL SC ×2 (08:39→21:00)
[2019-03-13] MEDS: CLOPIDOGREL 75 MG TAB PO (09:48)
[2019-03-14] MEDS: OXYCODONE/ACETAMINOPHEN (5/325) TAB PO ×6 (01:12→23:37)
[2019-03-14 05:45] LABS: ADD MAN DIFF? NO
[2019-03-14 05:55] LABS: WHITE BLOOD COUNT 9.1 10^3/ul (4.8-10.8)
[2019-03-14 05:55] LABS: BASOPHIL # 0.1 10^3/ul (0.0-0.1); BASOPHILS % 0.9 % (0.0-2.0); EOSINOPHILS # 0.7 10^3/ul (0.0-0.5); EOSINOPHILS % 8.1 % (0.0-7.0); HEMATOCRIT 25.6 % (42.0-52.0); HEMOGLOBIN 8.4 g/dl (14.0-18.0); LYMPHOCYTES # 0.9 10^3/ul (0.8-2.9); LYMPHOCYTES % 10.1 % (15.0-51.0); MEAN CORPUSCULAR HEMOGLOBIN 31.8 pg (29.0-33.0); MEAN CORPUSCULAR HGB CONC 32.8 g/dl (32.0-37.0); MEAN PLATELET VOLUME 10.7 fl (7.4-10.4); MONOCYTE # 0.9 10^3/ul (0.3-0.9); MONOCYTES % 10.2 % (0.0-11.0); NEUTROPHIL # 6.4 10^3/ul (1.6-7.5); NEUTROPHILS % 70.3 % (39.0-77.0); PLATELET COUNT 227 10^3/UL (140-415); RED BLOOD COUNT 2.64 10^6/ul (4.70-6.10); RED CELL DISTRIBUTION WIDTH 13.9 % (11.5-14.5)
[2019-03-14] MEDS: GUAIFENESIN 20 MG/ML 5ML CUP PO (06:06)
[2019-03-14 06:25] LABS: ANION GAP 13 (5-13); BLOOD UREA NITROGEN 57 mg/dl (7-20); CALCIUM 8.6 mg/dl (8.4-10.2); CARBON DIOXIDE 26 mmol/L (21-31); CHLORIDE 93 mmol/L (97-110); CREATININE 7.12 mg/dl (0.61-1.24); Estimated GFR 8 mL/min (>60); GLUCOSE 110 mg/dl (70-220); MAGNESIUM 2.3 mg/dl (1.7-2.5); PHOSPHORUS 7.6 mg/dl (2.5-4.9); POTASSIUM 4.8 mmol/L (3.5-5.1); SODIUM 132 mmol/L (135-144)
[2019-03-14] MEDS: INSULIN ASPART [NOVOLOG] 3 ML PEN SC ×7 (07:35→20:30)
[2019-03-14] MEDS: INSULIN GLARGINE [LANTus] (100 UNITS/ML) SYG SC (08:15)
[2019-03-14] MEDS: METOPROLOL 50 MG TAB PO ×2 (09:00→20:36)
[2019-03-14] MEDS: CLOPIDOGREL 75 MG TAB PO ×2 (09:00→13:26)
[2019-03-14] MEDS: HEPARIN 5,000 UNIT/1 ML VIAL SC ×3 (09:00→20:38)
[2019-03-14] MEDS: FAMOTIDINE 20 MG INJ IV ×2 (09:00→13:26)
[2019-03-14] MEDS: NYSTATIN 30 GM POWDER BTL TOP ×3 (09:00→20:37)
[2019-03-14] MEDS: LOSARTAN 25 MG TAB PO ×2 (09:00→20:36)
[2019-03-14] MEDS: SENNA TAB PO (17:20)
[2019-03-14] MEDS: EPOETIN ALFA-EPBX (NON-ESRD 10,000 UNIT/ML VIAL SC (17:52)
[2019-03-15 07:16] LABS: ADD MAN DIFF? NO
[2019-03-15 07:22] LABS: BASOPHIL # 0.1 10^3/ul (0.0-0.1); BASOPHILS % 0.7 % (0.0-2.0); EOSINOPHILS # 0.7 10^3/ul (0.0-0.5); EOSINOPHILS % 8.8 % (0.0-7.0); HEMATOCRIT 25.7 % (42.0-52.0); HEMOGLOBIN 8.3 g/dl (14.0-18.0); LYMPHOCYTES # 0.8 10^3/ul (0.8-2.9); LYMPHOCYTES % 9.3 % (15.0-51.0); MEAN CORPUSCULAR HEMOGLOBIN 30.9 pg (29.0-33.0); MEAN CORPUSCULAR HGB CONC 32.3 g/dl (32.0-37.0); MEAN CORPUSCULAR VOLUME 95.5 fl (82.0-101.0); MEAN PLATELET VOLUME 10.8 fl (7.4-10.4); MONOCYTE # 0.9 10^3/ul (0.3-0.9); MONOCYTES % 10.8 % (0.0-11.0); NEUTROPHIL # 5.9 10^3/ul (1.6-7.5); PLATELET COUNT 257 10^3/UL (140-415); RED BLOOD COUNT 2.69 10^6/ul (4.70-6.10); RED CELL DISTRIBUTION WIDTH 13.8 % (11.5-14.5)
[2019-03-15 07:22] LABS: WHITE BLOOD COUNT 8.4 10^3/ul (4.8-10.8)
[2019-03-15 07:42] LABS: ANION GAP 15 (5-13); BLOOD UREA NITROGEN 43 mg/dl (7-20); CALCIUM 8.8 mg/dl (8.4-10.2); CARBON DIOXIDE 26 mmol/L (21-31); CHLORIDE 95 mmol/L (97-110); CREATININE 6.18 mg/dl (0.61-1.24); Estimated GFR 9 mL/min (>60); GLUCOSE 76 mg/dl (70-220); MAGNESIUM 2.4 mg/dl (1.7-2.5); PHOSPHORUS 6.7 mg/dl (2.5-4.9); POTASSIUM 4.7 mmol/L (3.5-5.1); SODIUM 136 mmol/L (135-144)
[2019-03-15] MEDS: INSULIN ASPART [NOVOLOG] 3 ML PEN SC ×7 (08:00→20:32)
[2019-03-15] MEDS: INSULIN GLARGINE [LANTus] (100 UNITS/ML) SYG SC (08:10)
[2019-03-15] MEDS: HEPARIN 5,000 UNIT/1 ML VIAL SC ×2 (08:11→20:31)
[2019-03-15] MEDS: OXYCODONE/ACETAMINOPHEN (5/325) TAB PO ×4 (08:13→23:33)
[2019-03-15] MEDS: CLOPIDOGREL 75 MG TAB PO (08:13)
[2019-03-15] MEDS: FAMOTIDINE 20 MG INJ IV (08:19)
[2019-03-15] MEDS: LOSARTAN 25 MG TAB PO ×2 (08:19→11:55)
[2019-03-15] MEDS: METOPROLOL 50 MG TAB PO ×2 (08:19→20:29)
[2019-03-15] MEDS: NYSTATIN 30 GM POWDER BTL TOP ×2 (08:20→20:40)
[2019-03-15] MEDS: LOSARTAN 50 MG TAB PO (20:29)
[2019-03-16] MEDS: OXYCODONE/ACETAMINOPHEN (5/325) TAB PO ×6 (03:51→23:36)
[2019-03-16 05:35] LABS: ADD MAN DIFF? NO
[2019-03-16 05:43] LABS: BASOPHIL # 0.1 10^3/ul (0.0-0.1); BASOPHILS % 0.8 % (0.0-2.0); EOSINOPHILS # 0.7 10^3/ul (0.0-0.5); EOSINOPHILS % 8.5 % (0.0-7.0); HEMATOCRIT 25.4 % (42.0-52.0); HEMOGLOBIN 8.3 g/dl (14.0-18.0); LYMPHOCYTES # 0.7 10^3/ul (0.8-2.9); LYMPHOCYTES % 8.5 % (15.0-51.0); MEAN CORPUSCULAR HEMOGLOBIN 31.2 pg (29.0-33.0); MEAN CORPUSCULAR HGB CONC 32.7 g/dl (32.0-37.0); MEAN CORPUSCULAR VOLUME 95.5 fl (82.0-101.0); MEAN PLATELET VOLUME 10.3 fl (7.4-10.4); MONOCYTES % 12.4 % (0.0-11.0); NEUTROPHIL # 5.8 10^3/ul (1.6-7.5); NEUTROPHILS % 69.4 % (39.0-77.0); PLATELET COUNT 286 10^3/UL (140-415); RED BLOOD COUNT 2.66 10^6/ul (4.70-6.10); RED CELL DISTRIBUTION WIDTH 13.8 % (11.5-14.5)
[2019-03-16 05:43] LABS: WHITE BLOOD COUNT 8.4 10^3/ul (4.8-10.8)
[2019-03-16 05:57] LABS: ANION GAP 11 (5-13); BLOOD UREA NITROGEN 29 mg/dl (7-20); CALCIUM 8.8 mg/dl (8.4-10.2); CARBON DIOXIDE 29 mmol/L (21-31); CHLORIDE 96 mmol/L (97-110); CREATININE 4.83 mg/dl (0.61-1.24); Estimated GFR 13 mL/min (>60); GLUCOSE 101 mg/dl (70-220); MAGNESIUM 2.1 mg/dl (1.7-2.5); POTASSIUM 4.7 mmol/L (3.5-5.1); SODIUM 136 mmol/L (135-144)
[2019-03-16] MEDS: INSULIN ASPART [NOVOLOG] 3 ML PEN SC ×6 (08:00→20:38)
[2019-03-16] MEDS: INSULIN GLARGINE [LANTus] (100 UNITS/ML) SYG SC (08:10)
[2019-03-16] MEDS: FAMOTIDINE 20 MG TAB PO (09:27)
[2019-03-16] MEDS: CLOPIDOGREL 75 MG TAB PO (09:28)
[2019-03-16] MEDS: HEPARIN 5,000 UNIT/1 ML VIAL SC ×2 (09:28→20:38)
[2019-03-16] MEDS: METOPROLOL 50 MG TAB PO ×2 (09:29→20:31)
[2019-03-16] MEDS: LOSARTAN 50 MG TAB PO ×2 (09:29→20:31)
[2019-03-16] MEDS: NYSTATIN 30 GM POWDER BTL TOP ×2 (09:29→20:40)
[2019-03-16] MEDS: GUAIFENESIN 20 MG/ML 5ML CUP PO (09:38)
[2019-03-16] MEDS ORDERED: ACETAMINOPHEN 325 MG TAB PO (12:00)
[2019-03-16] MEDS: LINAGLIPTIN 5 MG TABLET PO (17:25)
[2019-03-16] MEDS: EPOETIN ALFA-EPBX (NON-ESRD 10,000 UNIT/ML VIAL SC (17:26)
[2019-03-16] MEDS: glipiZIDE 5 MG TAB PO (17:37)
[2019-03-16] MEDS: SENNA TAB PO (23:39)
[2019-03-17] MEDS: HYDROCODONE/APAP (5/325) TAB PO (01:55)
[2019-03-17] MEDS: HYDROmorphONE 2 MG TAB PO ×2 (04:14→22:28)
[2019-03-17] MEDS: INSULIN ASPART [NOVOLOG] 3 ML PEN SC ×4 (08:00→20:34)
[2019-03-17] MEDS: FAMOTIDINE 20 MG TAB PO (08:16)
[2019-03-17] MEDS: CLOPIDOGREL 75 MG TAB PO (08:16)
[2019-03-17] MEDS: glipiZIDE 5 MG TAB PO ×2 (08:19→17:18)
[2019-03-17] MEDS: LOSARTAN 50 MG TAB PO ×2 (08:19→20:43)
[2019-03-17] MEDS: LINAGLIPTIN 5 MG TABLET PO (08:19)
[2019-03-17] MEDS: METOPROLOL 50 MG TAB PO ×2 (08:20→20:43)
[2019-03-17] MEDS: HEPARIN 5,000 UNIT/1 ML VIAL SC ×2 (08:22→20:43)
[2019-03-17] MEDS: NYSTATIN 30 GM POWDER BTL TOP ×2 (08:26→20:44)
[2019-03-17] MEDS: OXYCODONE/ACETAMINOPHEN (5/325) TAB PO (13:51)
[2019-03-17] MEDS: GLUCOSE GEL 15 GRAM TUBE PO (17:17)
[2019-03-17] MEDS: DEXTROSE 50% 50 ML SYRINGE IV (18:40)
[2019-03-18] MEDS: hydrALAzine 20 MG INJ IV (02:44)
[2019-03-18 03:20] LABS: ADD MAN DIFF? NO
[2019-03-18] MEDS: DEXTROSE 50% 50 ML SYRINGE IV (03:20)
[2019-03-18 03:21] LABS: BASOPHIL # 0.1 10^3/ul (0.0-0.1); BASOPHILS % 0.7 % (0.0-2.0); EOSINOPHILS # 0.5 10^3/ul (0.0-0.5); EOSINOPHILS % 5.2 % (0.0-7.0); HEMATOCRIT 27.2 % (42.0-52.0); HEMOGLOBIN 8.8 g/dl (14.0-18.0); LYMPHOCYTES # 0.7 10^3/ul (0.8-2.9); LYMPHOCYTES % 7.5 % (15.0-51.0); MEAN CORPUSCULAR HEMOGLOBIN 30.9 pg (29.0-33.0); MEAN CORPUSCULAR HGB CONC 32.4 g/dl (32.0-37.0); MEAN CORPUSCULAR VOLUME 95.4 fl (82.0-101.0); MEAN PLATELET VOLUME 9.8 fl (7.4-10.4); MONOCYTES % 9.8 % (0.0-11.0); NEUTROPHIL # 7.4 10^3/ul (1.6-7.5); NEUTROPHILS % 76.3 % (39.0-77.0); PLATELET COUNT 295 10^3/UL (140-415); RED BLOOD COUNT 2.85 10^6/ul (4.70-6.10); RED CELL DISTRIBUTION WIDTH 13.9 % (11.5-14.5)
[2019-03-18 03:21] LABS: WHITE BLOOD COUNT 9.8 10^3/ul (4.8-10.8)
[2019-03-18 03:39] LABS: GLUCOSE 44 mg/dl (70-220)
[2019-03-18 03:44] LABS: ANION GAP 14 (5-13); BLOOD UREA NITROGEN 37 mg/dl (7-20); CALCIUM 9.2 mg/dl (8.4-10.2); CARBON DIOXIDE 25 mmol/L (21-31); CHLORIDE 95 mmol/L (97-110); CREATININE 6.71 mg/dl (0.61-1.24); Estimated GFR 9 mL/min (>60); MAGNESIUM 2.3 mg/dl (1.7-2.5); PHOSPHORUS 6.5 mg/dl (2.5-4.9); POTASSIUM 4.8 mmol/L (3.5-5.1); SODIUM 134 mmol/L (135-144)
[2019-03-18 03:47] LABS: GLUCOSE 43 mg/dl (70-220)
[2019-03-18] MEDS: INSULIN ASPART [NOVOLOG] 3 ML PEN SC ×4 (08:00→21:00)
[2019-03-18] MEDS: glipiZIDE 5 MG TAB PO (09:12)
[2019-03-18] MEDS: LOSARTAN 50 MG TAB PO ×2 (09:13→23:39)
[2019-03-18] MEDS: METOPROLOL 50 MG TAB PO ×2 (09:13→21:00)
[2019-03-18] MEDS: AMLODIPINE 5 MG TAB PO ×2 (09:13→23:38)
[2019-03-18] MEDS: FAMOTIDINE 20 MG TAB PO (09:13)
[2019-03-18] MEDS: NYSTATIN 30 GM POWDER BTL TOP ×2 (09:14→22:46)
[2019-03-18] MEDS: LINAGLIPTIN 5 MG TABLET PO (09:14)
[2019-03-18] MEDS: CLOPIDOGREL 75 MG TAB PO (09:14)
[2019-03-18] MEDS: HEPARIN 5,000 UNIT/1 ML VIAL SC ×2 (09:15→22:41)
[2019-03-18] MEDS: HYDROmorphONE 2 MG TAB PO ×2 (09:28→14:24)
[2019-03-18] MEDS: SENNA TAB PO (09:28)
[2019-03-18] MEDS: GLUCOSE GEL 15 GRAM TUBE PO (22:33)
[2019-03-18] MEDS: ONDANSETRON 4 MG INJ IV (22:40)
[2019-03-18] MEDS: OXYCODONE/ACETAMINOPHEN (5/325) TAB PO (23:37)
[2019-03-19] MEDS: INSULIN ASPART [NOVOLOG] 3 ML PEN SC ×2 (08:00→12:48)
[2019-03-19] MEDS: NYSTATIN 30 GM POWDER BTL TOP (08:09)
[2019-03-19] MEDS: HEPARIN 5,000 UNIT/1 ML VIAL SC (08:11)
[2019-03-19] MEDS: LINAGLIPTIN 5 MG TABLET PO (08:12)
[2019-03-19] MEDS: CLOPIDOGREL 75 MG TAB PO (08:12)
[2019-03-19] MEDS: FAMOTIDINE 20 MG TAB PO (08:12)
[2019-03-19] MEDS: glipiZIDE 5 MG TAB PO (08:13)
[2019-03-19] MEDS: METOPROLOL 50 MG TAB PO (08:14)
[2019-03-19] MEDS: LOSARTAN 50 MG TAB PO (08:15)
[2019-03-19] MEDS: AMLODIPINE 5 MG TAB PO (08:16)
[2019-03-19 08:25] LABS: ADD MAN DIFF? NO
[2019-03-19 08:32] LABS: BASOPHIL # 0.1 10^3/ul (0.0-0.1); BASOPHILS % 0.9 % (0.0-2.0); EOSINOPHILS # 0.7 10^3/ul (0.0-0.5); EOSINOPHILS % 8.7 % (0.0-7.0); HEMATOCRIT 25.6 % (42.0-52.0); HEMOGLOBIN 8.3 g/dl (14.0-18.0); LYMPHOCYTES # 0.9 10^3/ul (0.8-2.9); LYMPHOCYTES % 11.8 % (15.0-51.0); MEAN CORPUSCULAR HEMOGLOBIN 31.4 pg (29.0-33.0); MEAN CORPUSCULAR HGB CONC 32.4 g/dl (32.0-37.0); MEAN PLATELET VOLUME 10.7 fl (7.4-10.4); MONOCYTE # 1.1 10^3/ul (0.3-0.9); MONOCYTES % 14.1 % (0.0-11.0); NEUTROPHIL # 4.8 10^3/ul (1.6-7.5); NEUTROPHILS % 64.1 % (39.0-77.0); PLATELET COUNT 315 10^3/UL (140-415); RED BLOOD COUNT 2.64 10^6/ul (4.70-6.10); RED CELL DISTRIBUTION WIDTH 13.7 % (11.5-14.5)
[2019-03-19 08:32] LABS: WHITE BLOOD COUNT 7.5 10^3/ul (4.8-10.8)
[2019-03-19 08:58] LABS: ANION GAP 14 (5-13); BLOOD UREA NITROGEN 49 mg/dl (7-20); CALCIUM 8.8 mg/dl (8.4-10.2); CARBON DIOXIDE 25 mmol/L (21-31); CHLORIDE 93 mmol/L (97-110); CREATININE 8.81 mg/dl (0.61-1.24); Estimated GFR 6 mL/min (>60); GLUCOSE 63 mg/dl (70-220); MAGNESIUM 2.4 mg/dl (1.7-2.5); PHOSPHORUS 7.9 mg/dl (2.5-4.9); POTASSIUM 5.2 mmol/L (3.5-5.1); SODIUM 132 mmol/L (135-144)
[2019-03-19] MEDS: OXYCODONE/ACETAMINOPHEN (5/325) TAB PO ×2 (09:37→16:32)
[2019-03-19] MEDS: EPOETIN ALFA-EPBX (NON-ESRD 10,000 UNIT/ML VIAL SC (16:34)
== END 2019-03-19 16:45 | disposition home health service (06) | DRG 235 ==
LOC: TEL 03-04 06:39 → ICU 03-07 07:00 → PP2 03-13 22:53 → TEL 09:46 → ICU 03-07 13:38 → 6WM 03-09 22:28
PROVIDERS: Internal Medicine
PROC: 0212099 Bypass Coronary Artery, Three Arteries from Left Internal Mammary with Autologous Venous Tissue, Open Approach (ICD-10-PCS; principal; 2019-03-07 07:00)
PROC: 06BQ3ZZ Excision of Left Saphenous Vein, Percutaneous Approach (ICD-10-PCS; 2019-03-07 07:00)
PROC: 30233N1 Transfusion of Nonautologous Red Blood Cells into Peripheral Vein, Percutaneous Approach (ICD-10-PCS; 2019-03-07 07:14)
PROC: 5A1D70Z Performance of Urinary Filtration, Intermittent, Less than 6 Hours Per Day (ICD-10-PCS; 2019-03-07 07:14)
PROC: 5A1D70Z Performance of Urinary Filtration, Intermittent, Less than 6 Hours Per Day (ICD-10-PCS; 2019-03-07 07:14)
PROC: 5A1D70Z Performance of Urinary Filtration, Intermittent, Less than 6 Hours Per Day (ICD-10-PCS; 2019-03-07 07:14)
PROC: 5A1D70Z Performance of Urinary Filtration, Intermittent, Less than 6 Hours Per Day (ICD-10-PCS; 2019-03-07 07:14)
PROC: 5A1D70Z Performance of Urinary Filtration, Intermittent, Less than 6 Hours Per Day (ICD-10-PCS; 2019-03-07 07:14)
PROC: 5A1D70Z Performance of Urinary Filtration, Intermittent, Less than 6 Hours Per Day (ICD-10-PCS; 2019-03-07 07:14)
PROC: 5A1D70Z Performance of Urinary Filtration, Intermittent, Less than 6 Hours Per Day (ICD-10-PCS; 2019-03-07 07:14)
PROC: 5A1D70Z Performance of Urinary Filtration, Intermittent, Less than 6 Hours Per Day (ICD-10-PCS; 2019-03-07 07:14)
PROC: 5A1D70Z Performance of Urinary Filtration, Intermittent, Less than 6 Hours Per Day (ICD-10-PCS; 2019-03-07 07:14)
PROC: 5A1D70Z Performance of Urinary Filtration, Intermittent, Less than 6 Hours Per Day (ICD-10-PCS; 2019-03-07 07:14)
PROC: 5A1D70Z Performance of Urinary Filtration, Intermittent, Less than 6 Hours Per Day (ICD-10-PCS; 2019-03-07 07:14)
PROC: 5A1D70Z Performance of Urinary Filtration, Intermittent, Less than 6 Hours Per Day (ICD-10-PCS; 2019-03-07 07:14)
PROC: 5A1D70Z Performance of Urinary Filtration, Intermittent, Less than 6 Hours Per Day (ICD-10-PCS; 2019-03-07 07:14)
PROC: 5A1935Z Respiratory Ventilation, Less than 24 Consecutive Hours (ICD-10-PCS; 2019-03-07 07:14)
DX: I25.10 Atherosclerotic heart disease of native coronary artery without angina pectoris (principal); I50.23 Acute on chronic systolic (congestive) heart failure; N18.6 End stage renal disease; J96.01 Acute respiratory failure with hypoxia; I13.2 Hypertensive heart and chronic kidney disease with heart failure and with stage 5 chronic kidney disease, or end stage renal disease; E87.1 Hypo-osmolality and hyponatremia; E11.22 Type 2 diabetes mellitus with diabetic chronic kidney disease; Z99.2 Dependence on renal dialysis; F17.200 Nicotine dependence, unspecified, uncomplicated; D64.9 Anemia, unspecified; E78.5 Hyperlipidemia, unspecified; D69.6 Thrombocytopenia, unspecified; Z79.4 Long term (current) use of insulin
CPT/HCPCS: 36430; 36592; 36600; 71045; 80048; 80053; 80061; 82803; 82947; 82962; 83036; 83735; 84100; 84132; 84443; 85014; 85025; 85610; 85730; 86706; 86850; 86900; 86901; 86920; 87070; 87081; 87340; 88304; 88311; 90935; 93005; 93312; 93325; 94002; 94640; 94664; 97110; 97116; 97162; 97165; 97530; 97535